=== PATIENT | female | born 1965 | race Caucasian/White ===

== ENCOUNTER 2019-02-23 07:18 | Day surgery (SDC) | payer OTHER ==
[~2019-02-23] VITALS: Ht 165.1 cm; Wt 52.2 kg
[~2019-02-23 07:18] MED LIST: CEFAZOLIN 2 GM IVPB PREMIX 50 ML IV ONE
[2019-02-23] MEDS ORDERED: SEVOFLURANE 15 MIN GAS INH ONE (09:10)
[2019-02-23] MEDS ORDERED: ONDANSETRON HCL 4 MG/2 ML VIAL IVP ONE (09:10)
[2019-02-23] MEDS ORDERED: DEXAMETHASONE SOD PHOSPHATE 4 MG/ML VIAL IVP ONE (09:10)
[2019-02-23] MEDS ORDERED: NS IRRIG SOLN 1000 ML IR ONE (09:10)
[2019-02-23] MEDS ORDERED: PROPOFOL 200MG/ 20ML VIAL (DIPRIVAN) IV ONE (09:10)
[2019-02-23] MEDS ORDERED: ROCURONIUM BROMIDE 10 MG/ML (ZEMURON) IV ONE (09:10)
[2019-02-23] MEDS ORDERED: KETOROLAC TROMETHAMINE 30 MG VIAL IVP ONE (09:10)
[2019-02-23] MEDS ORDERED: MIDAZOLAM HCL 5 MG/5 ML VIAL IVP ONE (09:10)
[2019-02-23] MEDS ORDERED: NS 1000 ML IV.SOLN IV ONE (09:10)
[2019-02-23] MEDS ORDERED: D5 IV ONE (09:10)
[2019-02-23] MEDS ORDERED: ALFENTANIL HCL 1000 MCG/2 ML AMP IVP ONE (09:10)
[2019-02-23] MEDS ORDERED: NACL IV ONE (09:10)
[2019-02-23] MEDS ORDERED: HYDROcodone/ACETAMIN 5-325 MG TAB (NORCO/ VICODIN) PO PRN (09:45)
[2019-02-23] MEDS ORDERED: ONDANSETRON HCL 4 MG/2 ML VIAL IVP PRN (09:45)
[2019-02-23] MEDS ORDERED: LR 1,000 ML IV SCH (09:46)
[2019-02-23] MEDS ORDERED: MEPERIDINE HCL/PF 25 MG/ML DISP.SYRIN IVP PRN (10:00)
[2019-02-23] MEDS ORDERED: HYDROmorphone 1 MG INJ. 1 MG/ML AMPUL IVP PRN (10:00)
[2019-02-23] MEDS ORDERED: HYDROmorphone 2 MG/ML VIAL IVP PRN ×2 (10:00)
[2019-02-23] MEDS ORDERED: INSULIN REGULAR, HUMAN 10 UNITS/0.1 ML INJ IV ONE (10:15)
[2019-02-23] MEDS ORDERED: INSULIN REGULAR, HUMAN 100 UNITS/ML, 10 ML VIAL IV ONE ×2 (10:15→10:45)
[2019-02-23] MEDS ORDERED: INSULIN REGULAR, HUMAN 100 UNITS/ML, 10 ML VIAL (humuLIN R) ONE ×2 (10:26→11:02)
[2019-02-23 11:00] VITALS: BP_SYST 126
== END 2019-02-23 13:00 | disposition home or self-care (01) ==
LOC: SDS 07:18 → SMU 07:18 → SDS 13:00
PROVIDERS: ATTEND Specialist
DX: N95.0 Postmenopausal bleeding (principal); N88.2 Stricture and stenosis of cervix uteri; N73.6 Female pelvic peritoneal adhesions (postinfective); E10.9 Type 1 diabetes mellitus without complications; Z98.82 Breast implant status; Z98.890 Other specified postprocedural states; Z79.899 Other long term (current) drug therapy; Q05.7 Lumbar spina bifida without hydrocephalus
CPT/HCPCS: 58558; 82948; 82962; 88305; 93005; J0690; J1100; J1815; J1885; J2250; J2405; J2704; J3490; J7030; J7042; J7120